=== PATIENT | male | born 1955 | race Two or more races ===

== ENCOUNTER 2018-12-17 11:40 | Emergency (ER) | payer OTHER ==
[~2018-12-17] VITALS: Ht 170.2 cm; Wt 77.1 kg
--- NOTE | 2018-12-17 12:48 | RAD ---
ANKLE LEFT 3V, FOOT LEFT 3V History: Trauma. Left ankle and foot pain. Technique: 3 views left ankle and 3 views left foot. Comparison: None. Findings: Comminuted nondisplaced dorsal inferior calcaneal fracture. Normal alignment of the ankle. Symmetric ankle mortise. No additional fracture. Plantar calcaneal spur. Dorsal calcaneal enthesophyte. Impression: 1. Comminuted nondisplaced calcaneal fracture. Electronically signed by: Bryon Gil DO (12/17/2018 12:45 PM) [facility]
[2018-12-17] MEDS ORDERED: DIPHTH,PERTUSS(ACELL),TET TOX 0.5 ML DISP.SYRIN. VAX IM ONE (13:00)
[2018-12-17] MEDS ORDERED: MORPHINE SULFATE 10 MG/ML VIAL. IV ONE (13:00)
[2018-12-17] MEDS ORDERED: PIPERACILLIN/TAZOBACTAM 3.375 GM in IV NORMAL SALINE 50ML 50 ML IV ONE (13:00)
--- NOTE | 2018-12-17 14:02 | RAD ---
CT LOWER EXTREMITY WO LEFT History: Heel fracture Technique: Noncontrast axial CT of the foot. Coronal and sagittal reconstructions were performed. Comparison: None. Findings: Comminuted nondisplaced posterior medial calcaneal fracture. There is adjacent soft tissue swelling. Mild tendinous structures are grossly intact. Focal lucency within the lateral tibial plateau, may represent osteochondral lesion or related to degenerative changes. Calcification inferior to the medial malleolus, may relate to degenerative changes or prior trauma. Enthesopathic changes at the insertion of the Achilles. Impression: 1. Comminuted nondisplaced posterior medial calcaneal fracture. Electronically signed by: Bryon Gil DO (12/17/2018 1:58 PM) [facility]
[2018-12-17] MEDS ORDERED: CEPH500T PO (15:15)
[2018-12-17] MEDS ORDERED: HYDR-2763 PO (15:15)
--- NOTE | 2018-12-17 15:16 | PHYS DOC ---
Past Medical History Past Medical History: No Pertinent History Past Surgical History: No Surgical History Alcohol Use: None Drug Use: None Adult General Chief Complaint Chief Complaint: FOOT INJURY PAIN HPI HPI Patient is a 63 year old male who presents to the ED today complaining of left foot injury, patient states a 200 pound concrete fell on his left foot at work. Review of Systems Review of Systems Constitutional: Denies fever or chills [] Musculoskeletal: Reports left foot injury Integument: Denies rash or skin lesions [] Neurologic: Denies headache, focal weakness or sensory changes [] All other systems were reviewed and found to be within normal limits, except as documented in this note. Current Medications Current Medications Current Medications Medications (Trade) Dose Ordered Sig/Tala Start Time Stop Time Status Last Admin Dose Admin Diphtheria/ Tetanus/Acell Pertussis (Boostrix) 0.5 ml ONCE ONCE 12/17/18 13:00 12/17/18 13:01 DC 12/17/18 13:39 0.5 ML Morphine Sulfate (Morphine Sulfate) 5 mg 1X ONCE 12/17/18 13:00 12/17/18 13:01 DC 12/17/18 13:36 5 MG Piperacillin Sod/ Tazobactam Sod 3.375 gm/Sodium Chloride 50 ml @ 100 mls/hr 1X ONCE 12/17/18 13:00 12/17/18 13:29 DC 12/17/18 13:37 100 MLS/HR Allergies Allergies Allergies Coded Allergies Type Severity Reaction Last Updated Verified No Known Drug Allergies 09/27/15 No Physical Exam Physical Exam Constitutional: Well developed, well nourished, no acute distress, non-toxic appearance. [] Skin: See extremity Back: No tenderness, no CVA tenderness. [] Extremities: Anterior aspect of the left ankle with a superficial laceration approx. 0.5 and bruising, moderate swelling noted on the left ankle. Full range of motion to the left foot. Limited range of motion to foot and ankle. +2 left pedal pulse. Sensation intact to the left foot. Cap refill less than 2 seconds the left toes. Neurologic: Alert and oriented X 3, normal motor function, normal sensory function, no focal deficits noted. [] Psychologic: Affect normal, judgement normal, mood normal. [] Current Patient Data Vital Signs Vital Signs Date Time Temp Pulse Resp B/P (MAP) Pulse Ox O2 Delivery O2 Flow Rate FiO2 12/17/18 15:35 50 16 102/51 (68) 12/17/18 13:36 98 Room Air 12/17/18 12:12 97.9 97.9 EKG EKG [] Radiology/Procedures Radiology/Procedures []PROCEDURE: CT LOWER EXTREMITY WO LEFT CT LOWER EXTREMITY WO LEFT History: Heel fracture Technique: Noncontrast axial CT of the foot. Coronal and sagittal reconstructions were performed. Comparison: None. Findings: Comminuted nondisplaced posterior medial calcaneal fracture. There is adjacent soft tissue swelling. Mild tendinous structures are grossly intact. Focal lucency within the lateral tibial plateau, may represent osteochondral lesion or related to degenerative changes. Calcification inferior to the medial malleolus, may relate to degenerative changes or prior trauma. Enthesopathic changes at the insertion of the Achilles. Impression: 1. Comminuted nondisplaced posterior medial calcaneal fracture. Electronically signed by: Bryon Gil DO (12/17/2018 1:58 PM) [facility] DICTATED and SIGNED BY: BRYON GIL DO DATE: 12/17/18 2669 PROCEDURE: ANKLE LEFT 3V ANKLE LEFT 3V, FOOT LEFT 3V History: Trauma. Left ankle and foot pain. Technique: 3 views left ankle and 3 views left foot. Comparison: None. Findings: Comminuted nondisplaced dorsal inferior calcaneal fracture. Normal alignment of the ankle. Symmetric ankle mortise. No additional fracture. Plantar calcaneal spur. Dorsal calcaneal enthesophyte. Impression: 1. Comminuted nondisplaced calcaneal fracture. Electronically signed by: Bryon Gil DO (12/17/2018 12:45 PM) [facility] DICTATED and SIGNED BY: BRYON GIL DO DATE: 12/17/18 1762 Course & Med Decision Making Course & Med Decision Making Pertinent Labs and Imaging studies reviewed. (See chart for details) This is a 63-year-old male patient who presents to the ED today with left foot injury after a 200 pound concrete fell on his left foot. Tetanus was updated. Left foot/left ankle x-rays were noted for calcaneus fracture. CT of the left lower extremity was done which was noted for-Comminuted nondisplaced posterior medial calcaneal fracture. Patient was given Zosyn in the ED. Spoke with Dr. Nettles who requested we splint patient and follow-up in the clinic in the course of this week. Patient was placed in a posterior leg splint by the ED RN after the wound was cleaned on the foot and covered, neurovascular exam done by me is normal. Discharge and cephalexin. Ice elevation encouraged. Hydrocodone for pain, Ortho for f/u. Dragon Disclaimer Dragon Disclaimer This electronic medical record was generated, in whole or in part, using a voice recognition dictation system. Departure Departure Impression: Primary Impression: Calcaneus fracture, left Disposition: 01 HOME, SELF-CARE Condition: STABLE Referrals: NO PCP (PCP) VICKEY NETTLES MD follow up in the course of this week Patient Instructions: Calcaneal Fracture Additional Instructions: You were evaluated in the emergency room and noted to have calcaneus fracture/heel fracture of the left foot. Please do not bear weight on this foot. Try to ice and elevate the extremity and follow up with orthopedic doctor provided in the course of this week. We sent a prescription for antibiotics and pain medicine to your pharmacy. Scripts Cephalexin (CEPHALEXIN) 500 Mg Tablet 1 TAB PO TID, #30 TAB Prov: RAJINDER CUEVAS APRN 12/17/18 Hydrocodone/Acetaminophen (Hydrocodone-Acetamin 7.5-325) 1 Each Tablet 1 EACH PO Q4HRS PRN for PAIN, #30 TAB Prov: RAJINDER CUEVAS APRN 12/17/18 Problem Qualifiers Primary Impression: Calcaneus fracture, left Encounter type: initial encounter Calcaneus location: unspecified portion of calcaneus Fracture type: closed Fracture alignment: nondisplaced Qualified Codes: S92.002A - Unspecified fracture of left calcaneus, initial encounter for closed fracture RAJINDER CUEVAS APRN Dec 17, 2018 15:16
[2018-12-17 15:35] VITALS: BP 102/51
== END 2018-12-17 15:45 | disposition home or self-care (01) ==
LOC: ER 11:40
DX: S92.002A Unspecified fracture of left calcaneus, initial encounter for closed fracture (principal); W20.8XXA Other cause of strike by thrown, projected or falling object, initial encounter; Y93.89 Activity, other specified; Y92.69 Other specified industrial and construction area as the place of occurrence of the external cause; Y99.0 Civilian activity done for income or pay
CPT/HCPCS: 29515; 73610; 73630; 73700; 90471; 90715; 96365; 96375; 99284; J2270; J2543